=== PATIENT | male | born 1970 | race Hispanic/Latino ===

== ENCOUNTER → 2021-03-11 | Outpatient (CLI) | payer BC ==
[~2021-03-11] MED LIST: IOHEXOL-350 75 ML VIAL IV ONE; METOPROLOL TARTRATE 1 MG/ML 5ML VIAL IV ONE
== END | disposition home or self-care (01) ==
LOC: RAH 07:35
PROVIDERS: ATTEND Student in an Organized Health Care Education/Training Program
DX: R07.9 Chest pain, unspecified (principal); R60.0 Localized edema
CPT/HCPCS: 75574; J3490 ×2; Q9967